=== PATIENT | male | born 2000 | race Caucasian/White ===

== ENCOUNTER 2020-09-20 01:26 | Emergency (ER) | payer MEDICAID ==
[~2020-09-20] VITALS: Ht 177.8 cm; Wt 145.4 kg
[2020-09-20 03:24] VITALS: BP 138/83
[2020-09-20] MEDS ORDERED: LORazepam 1 MG tablet PO ONE (03:25)
== END 2020-09-20 04:03 | disposition home or self-care (01) ==
LOC: ER 01:27
DX: F41.0 Panic disorder [episodic paroxysmal anxiety] (principal); R06.02 Shortness of breath; R11.10 Vomiting, unspecified
CPT/HCPCS: 93005; 99283